=== PATIENT | female | born 1995 | race Caucasian/White ===

== ENCOUNTER 2018-11-26 11:58 | Inpatient (IN) | payer MEDICAID ==
[~2018-11-26] VITALS: Ht 157.5 cm; Wt 49.9 kg
[2018-11-26] MEDS ORDERED: ACETAMINOPHEN 325MG TABLET PO STA (12:28)
[2018-11-26] MEDS ORDERED: CEFTRIAXONE 1 G PREMIX 50 ML IV ONE (12:30)
[2018-11-26] MEDS ORDERED: SODIUM CHLORIDE 0.9% 1000ML BAG (SEPSIS BOLUS) IV ONE (12:30)
[2018-11-26 13:05] LABS: BASOPHILS % 0.2 % (0.0-2.0); HEMATOCRIT. 40.8 % (36.0-48.0); HEMOGLOBIN. 14.1 g/dL (12.0-16.0); LYMPHOCYTES % 7.3 % (20.0-50.0); MEAN CORPUSCULAR HEMOGLOBIN 31.3 pg (28.0-32.0); MEAN CORPUSCULAR VOLUME 90.2 fL (81.0-99.0); MEAN PLATELET VOLUME 10.7 fl (7.4-10.4); MONOCYTES % 3.8 % (2.0-8.0); NEUTROPHILS % 88.7 % (40.0-76.0); PLATELET 154 x1000/uL (130-400); RED BLOOD CELL COUNT 4.52 mill/uL (4.2-5.4); RED CELL DISTRIBUTION WIDTH 12.7 % (11.6-14.6)
[2018-11-26 13:07] LABS: CHLORIDE 105 mEq/L (98-107)
[2018-11-26 13:15] LABS: CLARITY URINE CLEAR (CLEAR); COLOR URINE YELLOW (YELLOW); KETONES URINE TRACE (NEGATIVE); LEUKOCYTE ESTERASE URINE 3+ (NEGATIVE); NITRITE URINE NEGATIVE (NEGATIVE); OCCULT BLOOD URINE 2+ (NEGATIVE); PH URINE 6.5 (4.5-8.0); PROTEIN URINE TRACE (NEGATIVE); SPECIFIC GRAVITY URINE 1.018 (1.005-1.030); UROBILINOGEN URINE 0.2 E.U./dL (0.2-1.0)
[2018-11-26] MEDS ORDERED: ACETAMINOPHEN 325MG TABLET PO PRN (15:45)
[2018-11-26] MEDS ORDERED: POTASSIUM CHLORIDE 20MEQ TABLET SR PO NR (15:45)
[2018-11-26] MEDS ORDERED: SODIUM CHLORIDE 0.9% 1,000 ML IV SCH (17:30)
[2018-11-26] MEDS ORDERED: SODIUM CHLORIDE 0.9% 1,000 ML IV NR (17:45)
[2018-11-26] MEDS ORDERED: CEFTRIAXONE 1 G PREMIX 50 ML IV SCH (17:45)
[2018-11-26] MEDS: SODIUM CHLORIDE 0.9% 1,000 ML IV SCH (17:45)
[2018-11-26] MEDS: ACETAMINOPHEN 325MG TABLET PO PRN (17:57)
[2018-11-26 18:00] VITALS: BP 100/45
[2018-11-26 20:00] VITALS: BP 92/50
[2018-11-26 22:00] VITALS: BP 104/53
[2018-11-27] MEDS: ACETAMINOPHEN 325MG TABLET PO PRN (03:49)
[2018-11-27 04:00] VITALS: BP 80/38
[2018-11-27 06:55] LABS: BASOPHILS % 0.5 % (0.0-2.0); EOSINOPHILS % 0.1 % (0.0-5.0); HEMATOCRIT. 34.4 % (36.0-48.0); HEMOGLOBIN. 11.7 g/dL (12.0-16.0); LYMPHOCYTES % 16.9 % (20.0-50.0); MEAN CORPUSCULAR HEMOGLOBIN 31.2 pg (28.0-32.0); MEAN CORPUSCULAR VOLUME 91.9 fL (81.0-99.0); MEAN PLATELET VOLUME 11.1 fl (7.4-10.4); MONOCYTES % 4.9 % (2.0-8.0); NEUTROPHILS % 77.6 % (40.0-76.0); PLATELET 121 x1000/uL (130-400); RED BLOOD CELL COUNT 3.75 mill/uL (4.2-5.4); RED CELL DISTRIBUTION WIDTH 12.7 % (11.6-14.6)
[2018-11-27 07:08] LABS: CHLORIDE 113 mEq/L (98-107)
[2018-11-27 08:00] VITALS: BP 88/46
[2018-11-27] MEDS: SODIUM CHLORIDE 0.9% 1,000 ML IV SCH (09:42)
[2018-11-27 12:00] VITALS: BP 97/67
[2018-11-27] MEDS ORDERED: CEFTRIAXONE 1 G PREMIX 50 ML IV SCH (12:00)
[2018-11-27 16:00] VITALS: BP 99/52
== END 2018-11-27 18:50 | disposition home or self-care (01) | DRG 720 ==
LOC: ER 11:58 → 6WST 14:25 → EDBEDREQ 14:36 → EDBEDREQSVC 14:36 → ENRESERV 14:47
PROVIDERS: ADMIT Internal Medicine; ATTEND Internal Medicine
DX: A41.9 Sepsis, unspecified organism (principal); E87.2 Acidosis; E87.1 Hypo-osmolality and hyponatremia; N39.0 Urinary tract infection, site not specified; E87.6 Hypokalemia
CPT/HCPCS: 36415; 71045; 80048; 81003; 83605; 84145; 84484; 93005; 96365; 99291; J0696; J7030